=== PATIENT | male | born 1995 | race Caucasian/White ===

== ENCOUNTER 2017-03-09 23:40 | Emergency (ER) | payer SELFPAY ==
[~2017-03-09] VITALS: Ht 180.3 cm; Wt 75.0 kg
[2017-03-09 23:42] VITALS: BP 130/84; PULSE 94; RESP 16; TEMP 98.5; O2SAT 100
[2017-03-10] MEDS ORDERED: oxyCODONE/ACETAMINOPHEN 5 MG/325 MG TAB PO ONE (00:15)
--- NOTE | 2017-03-10 01:56 | RADRPT ---
EXAM DATE/TIME: 03/10/2017 01:16 [place] COMPARISON: No previous studies available for comparison. INDICATIONS : Testicular trauma. MEDICAL HISTORY : Testicular trauma. Tobacco use. SURGICAL HISTORY : None. ENCOUNTER: Initial ACUITY: 1 day PAIN SCORE: 8/10 LOCATION: Bilateral scrotum. MEASUREMENTS: RIGHT TESTICLE: 3.7 x 3.0 x 2.1cm LEFT TESTICLE: 3.1 x 2.6 x 2.9cm FINDINGS: Ultrasound examination of the testicles demonstrates normal size bilaterally. There is normal Doppler flow bilaterally without evidence of mass. Bilateral varicoceles are present. There is a heterogeneo us area of mixed echogenicity inferior to the left testicle measuring 2.8 x 5.8 CM most characteristi c of hematoma. The epididymis appears normal bilaterally CONCLUSION: 1. No evidence of testicular fracture. 2. Findings most compatible with extratesticular hematoma on the left. Jorge Burris MD on March 10, 2017 at 1:52 Board Certified Radiologist. This report was verified electronically.
[2017-03-10] MEDS ORDERED: PERC5TAB12 PO (02:56)
--- NOTE | 2017-03-10 02:57 | PD ---
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 He reports severe pain in his testicles, constant, described as a throbbing, associated with swelling and bruising. He denies any other injuries. He was able to urinate following the injury. The injury happened about 2 hours ago. FORMERLY [facility] Past Medical History Medical History: Denies Significant Hx Diminished Hearing: No Tetanus Vaccination: Unknown Past Surgical History Surgical History: No Previous Surgery Social History Alcohol Use: Yes (weekends) Tobacco Use: Yes (use snuff) Substance Use: No Allergies-Medications (Allergen,Severity, Reaction): Coded Allergies: No Known Allergies (Unverified , 03/09/17) Reported Meds & Prescriptions Reported Meds & Active Scripts Active No Active Prescriptions or Reported Medications Review of Systems Except as stated in HPI: all other systems reviewed are Neg Physical Exam Narrative GENERAL:Well appearing, no acute distress SKIN: Focused skin assessment warm and dry. HEAD: Atraumatic. Normocephalic. EYES: Pupils equal and round. No injection or drainage. ENT: Moist mucous membranes NECK: Trachea midline. CARDIOVASCULAR: Regular rate and rhythm. No murmur appreciated. RESPIRATORY: Clear to auscultation. Breath sounds equal bilaterally. GASTROINTESTINAL: Abdomen soft, non-tender, nondistended. : Swelling and ecchymoses of the left hand my scrotum, right testicle is normal in appearance and nontender with normal cremasteric reflex MUSCULOSKELETAL: No obvious deformities. NEUROLOGICAL: Awake and alert. No obvious cranial nerve deficits. Moving all extremities. PSYCHIATRIC: Appropriate mood and affect; insight and judgment normal. Data Data Last Documented VS Vital Signs Date Time Temp Pulse Resp B/P (MAP) Pulse Ox O2 Delivery O2 Flow Rate FiO2 03/09/17 23:42 98.5 94 16 130/84 (99) 100 Room Air Orders Orders Us Testicles W Doppler (03/10/17 ) Oxycodone-Acetamin 5-325 Mg (Percocet (03/10/17 00:15) MDM Medical Decision Making Medical Screen Exam Complete: Yes Emergency Medical Condition: Yes Interpretation(s) Afebrile, mild tachycardia, normotensive Ultrasound: Extra testicular hematoma on the left Differential Diagnosis Testicular fracture, testicular torsion, hematoma, urethral injury Narrative Course This is a 21-year-old male presents to the emergency department with testicular pain following a traumatic injury. He has a significant amount of swelling on exam but is able to urinate without difficulty in the emergency department. Ultrasound demonstrates an extracted testicular hematoma but no testicular fracture and good flow to both testicles. I patient can be treated conservatively with elevation of the scrotum, pain control and can follow-up as needed with urology. Diagnosis Primary Impression: Hematoma of testis Referrals: Fahad Murray MD Patient Instructions: General Instructions Additional Instructions: If you develop severe pain, blood in your urine, inability to urinate or increasing swelling return to the emergency room. Follow-up with the urologist if you're not improved in one week. Keep your scrotum elevated with a towel and take pain control as needed. Med/Other Pt SpecificInfo: Prescription(s) given Scripts Oxycodone-Acetaminophen (Percocet) 5-325 mg Tab 1-2 TAB PO Q4H Y for PAIN, #15 TAB 0 Refills Prov: Nena Leo MD 03/10/17 Disposition: 01 DISCHARGE HOME Condition: Stable Nena Leo MD Mar 10, 2017 02:57
--- NOTE | 2017-03-10 03:13 | PD ---
HPI Chief Complaint: Edema Time Seen by Provider: 00:06 Travel History International Travel<30 days: No Contact w/Intl Traveler<30days: No Traveled to known affect area: No History of Present Illness HPI This is a 21-year-old male who presents to the emergency department having had a bull hoof come down on his testicles. He reports severe pain described as a soreness in his testicles, constant, with bruising and swelling. He says he has been able to urinate. He denies any other injuries. FORMERLY [facility] Past Medical History Medical History: Denies Significant Hx Diminished Hearing: No Tetanus Vaccination: Unknown Past Surgical History Surgical History: No Previous Surgery Social History Alcohol Use: Yes (weekends) Tobacco Use: Yes (use snuff) Substance Use: No Allergies-Medications (Allergen,Severity, Reaction): Coded Allergies: No Known Allergies (Unverified , 03/09/17) Reported Meds & Prescriptions Reported Meds & Active Scripts Active No Active Prescriptions or Reported Medications Review of Systems Except as stated in HPI: all other systems reviewed are Neg Physical Exam Narrative GENERAL:Well appearing, no acute distress SKIN: Focused skin assessment warm and dry. HEAD: Atraumatic. Normocephalic. EYES: Pupils equal and round. No injection or drainage. ENT: Moist mucous membranes NECK: Trachea midline. CARDIOVASCULAR: Regular rate and rhythm. No murmur appreciated. RESPIRATORY: Clear to auscultation. Breath sounds equal bilaterally. GASTROINTESTINAL: Abdomen soft, non-tender, nondistended. : Swelling and ecchymoses of the left hemiscrotum, right testicle is normal in appearance and nontender with a cremasteric reflex MUSCULOSKELETAL: No obvious deformities. NEUROLOGICAL: Awake and alert. No obvious cranial nerve deficits. Moving all extremities. PSYCHIATRIC: Appropriate mood and affect; insight and judgment normal. Data Data Last Documented VS Vital Signs Date Time Temp Pulse Resp B/P (MAP) Pulse Ox O2 Delivery O2 Flow Rate FiO2 03/09/17 23:42 98.5 94 16 130/84 (99) 100 Room Air Orders Orders Us Testicles W Doppler (03/10/17 ) Oxycodone-Acetamin 5-325 Mg (Percocet (03/10/17 00:15) MDM Medical Decision Making Medical Screen Exam Complete: Yes Emergency Medical Condition: Yes Diagnosis Primary Impression: Hematoma of testis Patient Instructions: General Instructions Med/Other Pt SpecificInfo: No Change to Meds Scripts No Active Prescriptions or Reported Meds Disposition: 01 DISCHARGE HOME (ERASED) Nena Leo MD Mar 10, 2017 03:13
== END 2017-03-10 03:57 | disposition home or self-care (01) ==
LOC: NEPC 23:40
DX: S30.22XA Contusion of scrotum and testes, initial encounter (principal); V80.018A Animal-rider injured by fall from or being thrown from other animal in noncollision accident, initial encounter; Y93.I9 Activity, other involving external motion
CPT/HCPCS: 76870; 93975; 99284